=== PATIENT | female | born 1960 | race Caucasian/White ===

== ENCOUNTER 2021-06-01 18:37 | Inpatient (IN) | payer OTHER ==
[~2021-06-01 18:37] MED LIST: Iopamidol 300 61% 100 ML VIAL FS ONE
[2021-06-01 19:19] LABS: #Monocytes 0.8 10x3/uL (0.0-1.1); #Neutrophils 8.3 10x3/uL (1.5-8.4); %Basophils 0.2 % (0.0-2.0); %Eosinophils 0.2 % (0.0-6.0); %Monocytes 7.5 % (0.0-10.0); %Neutrophils 81.4 % (40.0-75.0); Hemoglobin 12.7 g/dL (12.0-15.5); Mean Corpuscular HGB CONC 32.7 g/dL (32.0-36.0); Mean Corpuscular Hemoglobin 29.7 pg (27.0-33.0); Mean Corpuscular Volume 90.7 fl (81.6-98.3); Mean Platelet Volume 11.1 fl (7.4-10.4); Platelet Count 176 10x3/uL (150-450); RBC Distribution Width 14.1 % (11.5-14.5); Red Blood Cell (RBC) Count 4.28 10x6/uL (3.90-5.03); White Blood Cell (WBC) Count 10.2 10x3/uL (3.5-10.5)
[2021-06-01 19:32] LABS: ALT (SGPT) 11 U/L (8-55); AST (SGOT) 16 U/L (5-34); Albumin 4.2 g/dL (3.5-5.0); Alkaline Phosphatase 62 U/L (40-110); Anion Gap 17 mmol/L (10-20); BUN (Urea Nitrogen) 15 mg/dL (9.8-20.1); Bilirubin, Total 0.6 mg/dL (0.2-1.2); Calc. Creatinine Clearance 0 mL/min (70-130); Calcium 9.4 mg/dL (7.8-10.44); Carbon Dioxide 21 mmol/L (22-29); Chloride 104 mmol/L (98-107); Glucose 144 mg/dL (70-105); Lipase 12 U/L (8-78); Potassium 4.9 mmol/L (3.5-5.1); Protein, Total 7.2 g/dL (6.0-8.3); Sodium 137 mmol/L (136-145)
[2021-06-01 19:37] LABS: Bilirubin Neg (Negative); Blood, Urine Negative (Negative); Clarity Slightly Cloudy (Clear); Glucose, Urine (Dipstick) Normal (Negative); Ketone, Urine 5 mg/dL (Negative); Leukocyte 25 (Negative); Nitrite Positive (Negative); Protein, Urine (Dipstick) Negative (Neg-Trace); Urobilinogen Normal mg/dL (Less than 2)
[2021-06-01 19:50] LABS: Bacteria/HPF 3+ HPF (None Seen); RBC/HPF 0-3 HPF (0-3); Transitional Epithelial 0-3 HPF (None Seen)
[2021-06-01] MEDS ORDERED: cefTRIAXone\\ROCEPHIN 1 GM VIAL ONE (20:06)
[2021-06-01 20:21] LABS: SARS-CoV-2 NAA Rapid Test Not Detected (NotDetected)
[2021-06-01] MEDS ORDERED: Acetaminophen 500 MG TAB ONE (21:39)
[2021-06-01] MEDS ORDERED: Acetaminophen 325 MG TAB PO PRN (23:42)
[2021-06-01] MEDS ORDERED: cefTRIAXone\\ROCEPHIN 1 GM in Sodium Chloride 0.9% 100 ML IVPB SCH (23:45)
[2021-06-01 23:53] VITALS: BMI 31.3
[2021-06-02] MEDS ORDERED: Benztropine 1 MG TAB PO SCH (00:15)
[2021-06-02] MEDS ORDERED: Oxybutynin 5 MG TAB PO SCH (00:15)
[2021-06-02] MEDS ORDERED: risperiDONE 1 MG TAB PO SCH (00:15)
[2021-06-02] MEDS ORDERED: Lorazepam 1 MG TAB PO SCH (00:15)
[2021-06-02] MEDS ORDERED: Simvastatin 10 MG TAB PO SCH ×2 (00:15→21:00)
[2021-06-02] MEDS: Fluconazole 100 MG TAB PO SCH (00:52)
[2021-06-02] MEDS: Lactated Ringer's 1,000 ML IV SCH ×3 (00:53→18:15)
[2021-06-02 06:41] LABS: #Monocytes 0.7 10x3/uL (0.0-1.1); #Neutrophils 3.2 10x3/uL (1.5-8.4); %Basophils 0.5 % (0.0-2.0); %Eosinophils 0.6 % (0.0-6.0); %Monocytes 11.4 % (0.0-10.0); %Neutrophils 49.7 % (40.0-75.0); Hemoglobin 10.2 g/dL (12.0-15.5); Mean Corpuscular HGB CONC 32.9 g/dL (32.0-36.0); Mean Corpuscular Hemoglobin 30.4 pg (27.0-33.0); Mean Corpuscular Volume 92.3 fl (81.6-98.3); Mean Platelet Volume 10.8 fl (7.4-10.4); Platelet Count 152 10x3/uL (150-450); RBC Distribution Width 14.5 % (11.5-14.5); Red Blood Cell (RBC) Count 3.36 10x6/uL (3.90-5.03); White Blood Cell (WBC) Count 6.3 10x3/uL (3.5-10.5)
[2021-06-02 06:44] LABS: Anion Gap 13 mmol/L (10-20); BUN (Urea Nitrogen) 12 mg/dL (9.8-20.1); Calc. Creatinine Clearance 86 mL/min (70-130); Calcium 8.3 mg/dL (7.8-10.44); Carbon Dioxide 23 mmol/L (22-29); Chloride 110 mmol/L (98-107); Glucose 89 mg/dL (70-105); Magnesium 1.6 mg/dL (1.6-2.6); Potassium 4.2 mmol/L (3.5-5.1); Sodium 142 mmol/L (136-145)
[2021-06-02] MEDS: Docusate 100 MG CAP PO SCH (09:23)
[2021-06-02] MEDS: risperiDONE 1 MG TAB PO SCH ×2 (09:23→20:27)
[2021-06-02] MEDS: Lorazepam 1 MG TAB PO SCH ×2 (09:24→20:28)
[2021-06-02] MEDS: Benztropine 1 MG TAB PO SCH ×2 (09:24→20:27)
[2021-06-02] MEDS: Oxybutynin 5 MG TAB PO SCH ×2 (09:24→20:27)
[2021-06-02] MEDS: Lisinopril 10 MG TAB PO SCH (09:24)
[2021-06-02] MEDS: Enoxaparin Sodium 40 MG/0.4 ML SYRINGE SC SCH (09:25)
[2021-06-02] MEDS: metFORMIN 500 MG TAB PO SCH (09:25)
[2021-06-02] MEDS: Nystatin Powder 15 GM BOT TOP SCH ×2 (09:26→20:43)
[2021-06-02] MEDS ORDERED: cefTRIAXone\\ROCEPHIN 2 GM in Sodium Chloride 0.9% 100 ML IVPB SCH (20:00)
[2021-06-03] MEDS: Fluconazole 100 MG TAB PO SCH (01:47)
[2021-06-03] MEDS ORDERED: Polyethylene Glycol 3350 17 GM Packet PO SCH (09:00)
[2021-06-03] MEDS: Oxybutynin 5 MG TAB PO SCH (10:01)
[2021-06-03] MEDS: metFORMIN 500 MG TAB PO SCH (10:01)
[2021-06-03] MEDS: Lorazepam 1 MG TAB PO SCH (10:02)
[2021-06-03] MEDS: Lisinopril 10 MG TAB PO SCH (10:02)
[2021-06-03] MEDS: Enoxaparin Sodium 40 MG/0.4 ML SYRINGE SC SCH (10:02)
[2021-06-03] MEDS: risperiDONE 1 MG TAB PO SCH (10:02)
[2021-06-03] MEDS: Docusate 100 MG CAP PO SCH (10:02)
[2021-06-03] MEDS: Benztropine 1 MG TAB PO SCH (10:04)
[2021-06-03] MEDS: Nystatin Powder 15 GM BOT TOP SCH (10:05)
[2021-06-03 17:00] VITALS: BP 130/62; TEMP 96.3
== END 2021-06-03 16:53 | DRG 872 ==
LOC: CSHERS 18:37 → CSHTELE 23:31
PROVIDERS: ADMIT Family Medicine; ATTEND Family Medicine
DX: A41.9 Sepsis, unspecified organism (principal); N10 Acute pyelonephritis; G30.0 Alzheimer's disease with early onset; F02.80 Dementia in other diseases classified elsewhere, unspecified severity, without behavioral disturbance, psychotic disturbance, mood disturbance, and anxiety; E11.9 Type 2 diabetes mellitus without complications; F31.9 Bipolar disorder, unspecified; F20.9 Schizophrenia, unspecified; K82.8 Other specified diseases of gallbladder; E03.9 Hypothyroidism, unspecified; E78.5 Hyperlipidemia, unspecified; F17.200 Nicotine dependence, unspecified, uncomplicated; E78.00 Pure hypercholesterolemia, unspecified; I10 Essential (primary) hypertension; B37.3 Candidiasis of vulva and vagina; K57.90 Diverticulosis of intestine, part unspecified, without perforation or abscess without bleeding; Z20.822 Contact with and (suspected) exposure to COVID-19; N94.89 Other specified conditions associated with female genital organs and menstrual cycle; Z74.09 Other reduced mobility; Z79.899 Other long term (current) drug therapy; Z79.84 Long term (current) use of oral hypoglycemic drugs; Z98.891 History of uterine scar from previous surgery; Z72.89 Other problems related to lifestyle; Z82.49 Family history of ischemic heart disease and other diseases of the circulatory system; Z83.3 Family history of diabetes mellitus; Z87.440 Personal history of urinary (tract) infections
CPT/HCPCS: 36415; 51701; 71045; 74177; 80048; 80053; 81003; 81015; 83605; 83690; 83735; 84443; 85025; 87040; 87077; 87086; 87186; 93005; 96374; J0696; J1650; J3490; J7120; Q9967